=== PATIENT | male | born 1985 | race Two or more races ===

== ENCOUNTER 2019-06-05 20:04 | Emergency (ER) | payer OTHER ==
[~2019-06-05] VITALS: Ht 170.2 cm; Wt 74.8 kg
[2019-06-05 20:04] VITALS: BP 137/86
[2019-06-05] MEDS ORDERED: LORAZEPAM 1 MG TABLET ONE (20:19)
[2019-06-05] MEDS ORDERED: ACETAMINOPHEN ES 500 MG TABLET ONE (20:20)
[2019-06-05] MEDS ORDERED: ACETAMINOPHEN ES 500 MG TABLET PO ONE (20:30)
[2019-06-05] MEDS ORDERED: LORAZEPAM 1 MG TABLET PO ONE (20:30)
== END 2019-06-05 21:00 | disposition home or self-care (01) ==
LOC: ER 20:05
DX: M79.10 Myalgia, unspecified site (principal); F20.9 Schizophrenia, unspecified; F31.9 Bipolar disorder, unspecified

== ENCOUNTER 2019-11-05 22:12 | Emergency (ER) | payer OTHER ==
[~2019-11-05] VITALS: Ht 172.7 cm; Wt 63.5 kg
--- NOTE | 2019-11-05 22:20 | NUR ---
PT BIBSELF C/O L FOOT PAIN S/P GLF X2 DAYS AGO. PT AAOX4. NO ACUTE DISTRESS NOTED AT THIS TIME. PENDING MD MORGAN. WILL CONT TO MONITOR
[2019-11-05] MEDS ORDERED: HYDROCODONE/APAP 10/325MG TABLET PO ONE (22:30)
[2019-11-05] MEDS ORDERED: ONDANSETRON 4 MG TAB.RAPDIS SL ONE (22:30)
[2019-11-05] MEDS ORDERED: IBUPROFEN 400 MG TABLET PO ONE (22:30)
[2019-11-05] MEDS ORDERED: IBUPROFEN 400 MG TABLET ONE (22:31)
[2019-11-05] MEDS ORDERED: HYDROCODONE/APAP 10/325MG TABLET ONE (22:31)
[2019-11-05] MEDS ORDERED: ONDANSETRON 4 MG TAB.RAPDIS ONE (22:31)
--- NOTE | 2019-11-05 22:37 | NUR ---
XRAY AT THE BEDSIDE.
--- NOTE | 2019-11-05 23:26 | NUR ---
JEANIE WRAP AND CRUTCHES PROVIDED TO PATIENT
[2019-11-05 23:29] VITALS: BP 127/79
--- NOTE | 2019-11-05 23:29 | NUR ---
Patient discharged to home in stable condition. Written and verbal after care instructions given. Patient verbalizes understanding of instruction.Pt ambulatory with a steady gait
== END 2019-11-05 23:29 | disposition home or self-care (01) ==
LOC: ER 22:16
DX: M77.32 Calcaneal spur, left foot (principal); M13.872 Other specified arthritis, left ankle and foot
CPT/HCPCS: 73610; 73630; 99284; Q0162